=== PATIENT | female | born 1930 | race Caucasian/White ===

== ENCOUNTER → 2018-09-16 | Outpatient (CLI) | payer MEDICARE | END | disposition home or self-care (01) | LOC: RAH 10:30 | PROVIDERS: ATTEND Family Medicine | DX: I65.23 Occlusion and stenosis of bilateral carotid arteries (principal); I63.89 Other cerebral infarction; I67.2 Cerebral atherosclerosis; I77.1 Stricture of artery | CPT/HCPCS: 70544; 93880 ==